=== PATIENT | female | born 1990 | race Hispanic/Latino ===

== ENCOUNTER 2018-06-25 23:54 | Emergency (ER) | payer SELFPAY ==
[2018-06-26] MEDS ORDERED: Lidocaine 1% (PF) 30 ML VIAL ONE (00:51)
[2018-06-26] MEDS ORDERED: Bacitracin Zinc 1 Packet ONE ×2 (02:20)
[2018-06-26] MEDS ORDERED: Adacel (T-DAP) 0.5 ML SYRINGE ONE (02:26)
--- NOTE | 2018-06-26 07:43 | RAD ---
Exam: Right hand 3 views: HISTORY: Pain, laceration, injury COMPARISON: None FINDINGS: Based material overlies the region of the index finger. No evidence for metal density foreign body. No evidence for fracture, dislocation, or other significant acute osseous abnormality. IMPRESSION: No significant acute process.
--- NOTE | 2018-06-26 07:45 | RAD ---
Exam: Left hand 3 views: HISTORY: Pain COMPARISON: None FINDINGS: No fracture, dislocation, or other significant acute osseous center mallee. No abnormal opaque foreig n body.
== END 2018-06-26 03:16 | disposition home or self-care (01) ==
LOC: ERS 23:54
DX: S61.412A Laceration without foreign body of left hand, initial encounter (principal); W25.XXXA Contact with sharp glass, initial encounter
CPT/HCPCS: 12004; 90471; 90715; J2001

== ENCOUNTER 2018-06-28 12:41 | Outpatient (CLI) | payer OTHER, SELFPAY ==
[2018-06-28 14:06] LABS: BHCG - Serum Negative (NEGATIVE); Pregs Control Background? CLEAR/WHITE (CLR/WHITE); Pregs Control Bar Appear? YES (CONTROL BAR)
== END 2018-06-28 12:42 | disposition home or self-care (01) ==
LOC: LABBT 12:41
PROVIDERS: ATTEND Surgery Surgery of the Hand
DX: Z01.812 Encounter for preprocedural laboratory examination (principal); S64.490A Injury of digital nerve of right index finger, initial encounter; S64.491A Injury of digital nerve of left index finger, initial encounter
CPT/HCPCS: 84703

== ENCOUNTER 2018-07-01 10:11 | Day surgery (SDC) | payer OTHER, SELFPAY | END 2018-07-01 10:34 | disposition home or self-care (01) | LOC: SDC 10:11 | PROVIDERS: ATTEND Surgery Surgery of the Hand | DX: Z53.09 Procedure and treatment not carried out because of other contraindication (principal) ==

== ENCOUNTER 2018-07-03 12:46 | Day surgery (SDC) | payer OTHER, SELFPAY ==
[2018-07-03] MEDS ORDERED: Fentanyl 100 MCG/2 ML VIAL ONE (12:58)
[2018-07-03] MEDS ORDERED: Midazolam HCl 2 mg/2 ml Vial ONE (12:58)
[2018-07-03] MEDS ORDERED: Lidocaine 1% w/Epinephrine 1:100K 20 ML VIAL ONE (13:02)
[2018-07-03] MEDS ORDERED: Sodium Chloride 0.9% 0 ML ONE (13:02)
[2018-07-03] MEDS ORDERED: Bupivacaine/Epinephrine 0.25% 30 ML VIAL ONE (13:02)
[2018-07-03] MEDS ORDERED: Sodium Chloride 0.9% 10 ML ONE ×2 (13:57→13:58)
[2018-07-03] MEDS ORDERED: Lidocaine 1% (PF) 30 ML VIAL ONE (14:14)
[2018-07-03] MEDS ORDERED: Bupivacaine 0.25% HCL 30 ML VIAL ONE (14:15)
[2018-07-03] MEDS ORDERED: Ondansetron PF 4 MG/2 ML Vial ONE (16:16)
[2018-07-03] MEDS ORDERED: Dexamethasone 20 MG/5 ML VIAL ONE (16:16)
[2018-07-03] MEDS ORDERED: Lidocaine 1% PF 5 ML VIAL ONE (16:16)
[2018-07-03] MEDS ORDERED: PROPOFOL 200 MG/20 ML VIAL ONE (16:16)
[2018-07-03] MEDS ORDERED: Ketorolac Tromethamine 30 MG/ML VIAL ONE (16:16)
--- NOTE | 2018-07-04 11:56 | OP ---
DATE OF PROCEDURE: 07/03/2018 PREOPERATIVE DIAGNOSES: Right index finger ulnar digital nerve laceration and left ring finger ulnar digital nerve laceration. POSTOPERATIVE DIAGNOSES: Right index finger ulnar digital nerve laceration and left ring finger ulnar digital nerve laceration. PROCEDURES PERFORMED: Primary repair of right index finger and left ring finger ulnar digital nerve lacerations with augmentation of the repair utilizing a protective nerve conduit, right index finger and left ring finger ulnar digital nerves. CORPORATE REPRESENTATIVE: Please see operative record. ANESTHESIA: General and local. TOURNIQUET TIME: Right upper extremity 39 minutes. Left upper extremity 24 minutes. FINDINGS: A 100% lacerated ulnar digital nerve, right index finger; and partially lacerated left ring finger ulnar digital nerve. IMPLANTS: 3-mm nerve conduit, Integra. CONDITION: Stable. ESTIMATED BLOOD LOSS: Less than 10 mL. INDICATIONS: The patient is a 28-year-old female, who is scheduled for surgery earlier this week; however, the surgery was cancelled because she did not follow n.p.o. orders and she drank coffee with creamer on the morning of her surgery. She was seen in my office about a week prior with injuries to her right and left hands after falling through a glass table. Clinically, it appeared that she suffered injuries to the ulnar digital nerves of her right index finger and left ring finger. I discussed all risks and goals associated with surgery. I did not offer any guaranties nor were any implied. The goal of surgery is to repair the nerves and hopefully restore functions in the ulnar aspects of the injured digits. The risks associated with surgery include but are not limited to possible nerve injury, blood vessel injury, tendon injury, ongoing numbness and tingling in one or more fingers of both hands, infection, chronic pain, etc. She voiced understanding of all risks and goals associated with surgery and has elected to proceed with ulnar digital nerve repair of right index finger and left ring finger today under general anesthesia. DESCRIPTION OF PROCEDURE: The patient was brought to the operating room, placed supinely on the operating room table. A time-out was performed. Antibiotics were administered. A right forearm tourniquet was applied. A left forearm tourniquet was applied. General anesthesia was induced by the Anesthesia Team. Both the right and left upper extremities were prepped and draped in a sterile aseptic condition. A second time-out was performed. My attention was directed towards the right index finger ulnar digital nerve repair first. The right upper extremity was exsanguinated using an Esmarch wrap and the tourniquet was inflated to 250 mmHg. The patient had lacerations over the volar MP joints of the right index and middle fingers predominantly, and the lacerations appeared to be healing well. The sutures were removed from the laceration over the volar right index finger, and the laceration was extended proximally in Deidre's fashion across the finger flexor crease around the volar MP joint region. Skin flaps were bluntly elevated using tenotomy scissors and a single 4-0 nylon stay suture was used to retract the skin flap. Dissection continued down to the ulnar digital neurovascular bundle. The ulnar artery was lacerated and thrombosed. There was an ulnar digital nerve that was lacerated completely. It was debrided from its distal and proximal stumps, and then I was able to primarily repair it using 8-0 nylon suture. The repair was augmented using 3-mm nerve conduit. The wound was irrigated. It should be noted that local anesthetic was infiltrated into the skin in the area of predicted skin incision prior to starting the incision, and some additional local anesthetic was infiltrated into the wound to help with postoperative pain. The nylon stay suture was removed after the wound was thoroughly irrigated. The tendons appeared to be intact and the radial neurovascular digital bundle of the right index finger was intact. It should be noted that clinically the patient displayed good FDS and FDP tendon functions of all fingers of both hands despite her finger lacerations and the extensor tendon functions also appeared to be intact at all fingers of both hands. The skin incision and the laceration were primarily repaired using 4-0 nylon suture. The tourniquet was deflated during skin closure. All fingers resumed a normal pink color with good refill including the right index finger once tourniquet was deflated, the wound was dressed using Xeroform and a bulky dressing. I then directed my attention toward the left ring finger ulnar digital nerve repair. The local anesthetic was infiltrated into the laceration to help with pain. The left upper extremity was then exsanguinated using an Esmarch wrap and the tourniquet was inflated at 250 mmHg. Sutures were removed from the laceration and the skin flap was elevated bluntly using tenotomy scissors. I was able to identify the radial and ulnar neurovascular digital bundles. The radial neurovascular bundle was intact. The ulnar neurovascular digital bundle showed a partial laceration in the ulnar digital nerve. I was able to repair the partial laceration with 8-0 nylon suture, and then augmented the repair using a 3-mm nerve conduit. The wound was irrigated thoroughly. The tendons appeared to be intact. There was no violation of flexor sheath. The skin laceration was primarily repaired using 4-0 nylon suture. Tourniquet was deflated during skin closure. All fingers including left ring finger returned and resumed to a normal pink color with good refill. Xeroform was applied over the wound along with Bulky dressing. She was placed into a dorsal blocking splint. The dorsal blocking splint was also applied to the right hand and forearm area as well. The patient was extubated and transported back to the recovery area in stable condition. She will be seen by Occupational Hand Therapy around postoperative day #3 to 4 to begin range of motion exercises as per protocol. I will see her back in clinic around postoperative day #8 to 10 for suture removal and wound check. She was discharged home on tramadol for pain medication, 50 mg one to two tablets p.o. q.6 hours, 30 pills were prescribed. Job ID: [id number]
== END 2018-07-03 17:35 | disposition home or self-care (01) ==
LOC: SDC 12:46
PROVIDERS: ATTEND Surgery Surgery of the Hand
PROC: 01U40JZ Supplement Ulnar Nerve with Synthetic Substitute, Open Approach (ICD-10-PCS; principal; 2018-07-03)
DX: S64.490A Injury of digital nerve of right index finger, initial encounter (principal); S64.494A Injury of digital nerve of right ring finger, initial encounter; S65.011A Laceration of ulnar artery at wrist and hand level of right arm, initial encounter; F17.200 Nicotine dependence, unspecified, uncomplicated; Z79.2 Long term (current) use of antibiotics; W01.110A Fall on same level from slipping, tripping and stumbling with subsequent striking against sharp glass, initial encounter
CPT/HCPCS: J0690; J1100; J1885; J2001; J2250; J2405; J2704; J3010; J3490; S0020